=== PATIENT | male | born 1985 | race Asian ===

== ENCOUNTER 2016-12-26 21:14 | Emergency (ER) | payer OTHER ==
[2016-12-26 21:20] VITALS: BP 116/77
--- NOTE | 2016-12-26 21:31 | UC ---
Skin Complaint HPI - HPI Summary HPI Summary: The patient comes in today for: 1. Rash: Onset: 1 week ago. Palliative/provocative: Nothing makes it better or worse except scratching it. Quality: Itching Region: Lower back on the right. Severity: 2/10 Time: Constant. Associated symptoms: Fevers: None. He does not remember having chicken pox, but states that he has a history of cold sores. He states that he has had pain in that area before but does not remember any particular rash. He states that he has two children and thinks that they have had their chicken pox vaccines. He states that his had shingles a year ago. He states that he has an "electric" sensation of the right sided lower abdomen to light touch. * - History of Current Complaint Chief Complaint: UCRash Time Seen by Provider: 12/26/16 21:25 Stated Complaint: RASH ON BACK Hx Obtained From: Patient - Allergy/Home Medications Allergies/Adverse Reactions: Allergies Allergy/AdvReac Type Severity Reaction Status Date / Time No Known Allergies Allergy Verified 12/26/16 21:20 Review of Systems Constitutional: Negative Skin: Rash Eyes: Negative ENT: Negative Respiratory: Negative Cardiovascular: Negative Gastrointestinal: Negative Genitourinary: Negative All Other Systems Reviewed And Are Negative: Yes PMH/Surg Hx/FS Hx/Imm Hx Previously Healthy: Yes - Surgical History Surgical History: None - Family History Known Family History: Negative: Hypertension, Diabetes - Social History Occupation: Employed Full-time Alcohol Use: None Substance Use Type: None Smoking Status (MU): Never Smoked Tobacco Physical Exam Triage Information Reviewed: Yes Appearance: Well-Appearing, No Pain Distress, Well-Nourished Vital Signs: Initial Vital Signs Temp 98.4 F 12/26/16 21:17 Pulse 67 12/26/16 21:17 Resp 16 12/26/16 21:17 BP 116/77 12/26/16 21:17 Pulse Ox 98 12/26/16 21:17 Vital Signs Reviewed: Yes Eyes: Positive: Conjunctiva Clear ENT: Positive: Hearing grossly normal, Pharyngeal erythema, Nasal congestion. Negative: Nasal drainage, TM bulging, TM dull, TM red, Tonsillar swelling, Tonsillar exudate Dental: Negative: Gross Decay/Caries @, Dental Fracture @ Neck: Positive: Supple, Nontender, No Lymphadenopathy. Negative: Nuchal Rigidity Respiratory: Positive: Lungs clear, No respiratory distress, No accessory muscle use. Negative: Rhonchi, Wheezing Cardiovascular: Positive: RRR, No Murmur Abdomen Description: Positive: Nontender, No Organomegaly, Soft. Negative: Distended, Guarding Musculoskeletal: Positive: Strength Intact, ROM Intact, No Edema Neurological: Positive: Alert Psychological: Positive: Age Appropriate Behavior, Consolable Skin: Positive: rashes - He has erythematous papules in clusters of the lower right back. There are no clusters, but these papules are in clusters on an erythematous base. Course/Dx - Course Course Of Treatment: He got 800 mg acyclovir tonight. He is to take another 800 mg in the morning and get his prescription for Valacylovir starting tomorrow. - Diagnoses Provider Diagnoses: Shingles, lower right back. Discharge - Discharge Plan Condition: Stable Disposition: HOME Patient Education Materials: uLz (ED)
[2016-12-26] MEDS ORDERED: Acyclovir* 400 MG TAB PO ONE (22:55)
[2016-12-26] MEDS ORDERED: Acyclovir* 200 MG CAP PO ONE ×2 (22:56→23:06)
== END 2016-12-26 23:20 | disposition home or self-care (01) ==
LOC: UCEAST 21:14
DX: B02.9 Zoster without complications (principal)
CPT/HCPCS: 99212; A9270-GY; G0463

== ENCOUNTER 2018-07-07 08:09 | Emergency (ER) | payer OTHER ==
[2018-07-07 08:25] VITALS: BP 111/68
--- NOTE | 2018-07-07 08:47 | ED ---
Influenza-Like Illness - HPI Summary HPI Summary: 32-year-old male presents with complaints of a persistent cough. States he saw his primary care provider 5 days ago with one-day history of fever, chills, malaise, nasal congestion, and a nonproductive cough. He was started on Augmentin twice a day which he states he's been compliant with taking. States symptoms have improved slightly although he continues to have an intermittent fever. Last fever was yesterday evening of 101 F. denies ear pain, sore throat , chest pain, shortness of breath, abdominal pain, nausea, vomiting, or diarrhea. - History of Current Complaint Chief Complaint: UCGeneralIllness Time Seen by Provider: 07/07/18 08:20 Hx Obtained From: Patient - Allergy/Home Medications Allergies/Adverse Reactions: Allergies Allergy/AdvReac Type Severity Reaction Status Date / Time No Known Allergies Allergy Verified 12/26/16 21:20 Home Medications: Home Medications Acetaminophen [Tylenol] 325 mg PO 07/07/18 [History] Amoxicillin 07/07/18 [History] PMH/Surg Hx/FS Hx/Imm Hx Previously Healthy: Yes - Denies significant PMH Endocrine/Hematology History: Denies: Hx Diabetes, Hx Thyroid Disease Cardiovascular History: Denies: Hx Congestive Heart Failure, Hx Deep Vein Thrombosis, Hx Hypertension , Hx Myocardial Infarction, Hx Pacemaker/ICD Respiratory History: Denies: Hx Asthma, Hx Chronic Obstructive Pulmonary Disease (COPD), Hx Lung Cancer, Hx Pneumonia, Hx Pulmonary Embolism GI History: Denies: Hx Gall Bladder Disease, Hx Gastrointestinal Bleed, Hx Ulcer, Hx Urosepsis History: Denies: Hx Kidney Stones, Hx Renal Disease Neurological History: Denies: Hx Dementia, Hx Migraine, Hx Seizures, Hx Transient Ischemic Attacks (TIA) Psychiatric History: Denies: Hx Anxiety, Hx Depression, Hx Schizophrenia, Hx Bipolar Disorder Infectious Disease History: No Infectious Disease History: Denies: Hx Clostridium Difficile, Hx Hepatitis, Hx Human Immunodeficiency Virus (HIV), Hx of Known/Suspected MRSA, Hx Shingles, Hx Tuberculosis, Hx Known/ Suspected VRE, Hx Known/Suspected VRSA, History Other Infectious Disease, Traveled Outside the [place] in Last 30 Days - Family History Known Family History: Negative: Hypertension, Diabetes - Social History Occupation: Employed Full-time Lives: With Family Alcohol Use: None Substance Use Type: Reports: None Smoking Status (MU): Never Smoked Tobacco Review of Systems Positive: Fever Negative: Drainage, Erythema Positive: Nasal Discharge. Negative: Sore Throat, Ear Ache Negative: Palpitations, Chest Pain Positive: Cough. Negative: Shortness Of Breath Negative: Abdominal Pain, Vomiting, Diarrhea, Nausea All Other Systems Reviewed And Are Negative: Yes Physical Exam - Summary Physical Exam Summary: GENERAL APPEARANCE: Well developed, well nourished, alert and cooperative, and appears to be in no acute distress. EYES: Conjunctiva clear. No discharge. Vision is grossly intact. EARS: External auditory canals and tympanic membranes clear, hearing grossly intact. NOSE: Mild-moderate nasal congestion. No nasal discharge. THROAT: Oral cavity and pharynx normal. No inflammation, swelling, exudate, or lesions. Teeth and gingiva in good general condition. NECK: Neck supple, non-tender without lymphadenopathy. CARDIAC: Normal S1 and S2. No S3, S4 or murmurs. Rhythm is regular. There is no peripheral edema, cyanosis or pallor. Extremities are warm and well perfused. Capillary refill is less than 2 seconds. LUNGS: Clear to auscultation and percussion without rales, rhonchi, wheezing or diminished breath sounds. ABDOMEN: Positive bowel sounds. Soft, nondistended, nontender. No guarding or rebound. No masses or hepatosplenomegally. SKIN: Skin normal color, texture and turgor with no lesions or eruptions. Triage Information Reviewed: Yes Vital Signs On Initial Exam: Initial Vitals Temp Pulse Resp BP Pulse Ox 98.5 F 68 16 111/68 99 07/07/18 08:16 07/07/18 08:16 07/07/18 08:16 07/07/18 08:16 07/07/18 08:16 Vital Signs Reviewed: Yes Diagnostics - Vital Signs Vital Signs Temp Pulse Resp BP Pulse Ox 07/07/18 08:16 98.5 F 68 16 111/68 99 - Laboratory Lab Statement: Any lab studies that have been ordered have been reviewed, and results considered in the medical decision making process. Flu Symptom Course/Dx - Course Course Of Treatment: 32-year-old male presents with complaints of a persistent cough. States he saw his primary care provider 5 days ago with one-day history of fever, chills, malaise, nasal congestion, and a nonproductive cough. He was started on Augmentin twice a day which he states he's been compliant with taking. States symptoms have improved slightly although he continues to have an intermittent fever. Last fever was yesterday evening of 101 F. denies ear pain, sore throat, chest pain, shortness of breath, abdominal pain, nausea, vomiting, or diarrhea. Afebrile. VSS. Exam revealed nasal congestion and occasional dry nonproductive cough otherwise benign. Suspect his symptoms are viral in origin however will have him continue with Augmentin as directed. Recommend symptomatic treatment including OTC decongestant and Tesalon Perles PRN cough. He is to follow up with PCP if symptoms persist. Warning symptoms reviewed. Verbalizes understanding and agrees with POC. - Diagnoses Differential Diagnosis/HQI/PQRI: Positive: Bronchitis, Influenza, Pneumonia, Upper Respiratory Infection Provider Diagnoses: Upper respiratory infection with cough and congestion Discharge - Sign-Out/Discharge Documenting (check all that apply): Patient Departure All imaging exams completed and their final reports reviewed: No Studies - Discharge Plan Condition: Stable Disposition: HOME Prescriptions: Benzonatate CAP* [Tessalon 100 MG CAP*] 100 mg PO TID PRN #30 cap PRN Reason: Cough Patient Education Materials: Upper Respiratory Infection (ED) Referrals: Luiz Chaudhari MD [Primary Care Provider] - 7 Days (If symptoms persist) Additional Instructions: Your history and exam are consistent with an upper respiratory infection. I suspect that this may be a viral infection however I would recommend that you continue with your antibiotics since you have already started treatment. Drink plenty of fluids to avoid dehydration especially if you are running any fever. Use a saline rinse kit such as Neti Pot or NeilMed at least twice a day to help thin secretions and promote drainage of the sinuses. Take over the counter acetaminophen (Tylenol) or ibuprofen (Advil, Motrin) according to directions as needed for pain or fever. Try using an over the counter decongestant such as Sudafed according to directions to help with the nasal congestion. Take Tessalon Perles 1 cap every 8 hours as needed for cough. Follow up with your primary care provider in 7 days if symptoms persist. Seek immediate medical attention in the emergency room if you have fever greater than 100.5 F despite taking acetaminophen or ibuprofen, have chest pain , difficulty breathing, are unable to swallow, or have any worsening of symptoms. - Billing Disposition and Condition Condition: STABLE Disposition: Home
== END 2018-07-07 08:52 | disposition home or self-care (01) ==
LOC: UCEAST 08:09
DX: J06.9 Acute upper respiratory infection, unspecified (principal); R05 Cough; R09.81 Nasal congestion
CPT/HCPCS: 99202; G0463